=== PATIENT | female | born 1945 | race Caucasian/White ===

== ENCOUNTER → 2020-05-23 08:37 | Outpatient (REF) | payer MEDICARE, OTHER, SELFPAY | LOC: ANHLAB 08:37 | PROVIDERS: PCP Internal Medicine; Visit Provider Nurse Practitioner | DX: L57.0 Actinic keratosis (principal); R23.4 Changes in skin texture | CPT/HCPCS: 88305 ==

== ENCOUNTER → 2020-07-24 07:52 | Outpatient (REF) | payer MEDICARE, OTHER, SELFPAY | LOC: ANHLAB 07:52 | PROVIDERS: PCP Internal Medicine; Visit Provider Nurse Practitioner | DX: C44.619 Basal cell carcinoma of skin of left upper limb, including shoulder (principal) | CPT/HCPCS: 88305; 88331 ==

== ENCOUNTER → 2021-01-08 02:16 | Outpatient (CLI) | payer MEDICARE, SELFPAY ==
[2021-01-08 17:04] LABS: SARS-CoV-2 RNA PCR Negative
== END ==
PROVIDERS: PCP Internal Medicine; Visit Provider Orthopaedic Surgery
DX: Z01.812 Encounter for preprocedural laboratory examination (principal); Z20.822 Contact with and (suspected) exposure to COVID-19
CPT/HCPCS: C9803; U0003; U0005

== ENCOUNTER 2021-01-11 01:42 | Day surgery (SDC) | payer MEDICARE, SELFPAY ==
[2021-01-03 09:07] VITALS: BMI 25.6
[2021-01-11] VITALS (10 sets, daily range): BP systolic 125–173; BP diastolic 56–74; PULSE 57–70; RESP 10–20; TEMP 36–36.2; O2SAT 92–100
--- NOTE | ~2021-01-11 | XR_ITS ---
EXAMINATION: XR surgery orthopedic DATE: 01/11/2021 10:57 INDICATION: ORIF left wrist fracture TECHNIQUE: 3 fluoroscopic images of the left wrist were obtained during procedure performed by Dr. Diego butcher. Radiologist was not present for the imaging or procedure. The amount of fluoroscopy time used during this procedure was 0.4 minutes. COMPARISON: None. FINDINGS: Volar T plate and screw fixation of a distal left radial fracture which is now near-anatomic alignmen t. Additional unfixed comminuted fracture of the distal left radius including a minimally displaced o blique fracture plane at the distal metaphyseal region as well as a small minimally distracted ulnar styloid avulsion fracture. Expected small amount of postoperative gas in the surrounding soft tissues and in the wrist joint space. IMPRESSION: 1. Near-anatomic alignment of distal left radial and ulnar fractures post volar T plate and screw fix ation of the radial fracture. See procedure report for further detail. Reviewed, dictated and finalized at location A. IMPRESSION: 1. Near-anatomic alignment of distal left radial and ulnar fractures post volar T plate and screw fixation of the radial fracture. See procedure report for fu rther detail.
[2021-01-11] MEDS: ACETAMINOPHEN 500 MG TABLET 1000 MG PO (08:12)
[2021-01-11] MEDS: LACTATED RINGERS 1,000 ML 30 ML IV CONT ×2 (08:15→12:18)
[2021-01-11] MEDS: KETOROLAC 15 MG/ML VIAL (*BKC) IV PUSH (08:24)
--- NOTE | 2021-01-11 08:40 | WPDANESEPPF ---
Anes - Initial Pre Proc Eval Procedure: Operation Date: 01/11/21 09:30 Proposed Procedures p Open Reduction Internal Fixation Left Wrist - Luis Manuel Thakur MD Date/Time: 01/11/21 08:40 Surgeon: Luis Manuel Thakur MD Pre Op Diagnosis: left wrist fx Patient Data Age: 75 Gender: F Height: 5 ft 2 in Weight: 63.63 kg Allergies Allergy/AdvReac Type Severity Reaction Status Date / Time No Known Allergies Allergy Verified 01/11/21 08:07 Home Medications Medication Instructions Recorded Confirmed Type folic acid 1 mg tablet 1 mg PO DAILY 05/23/20 01/11/21 History metoprolol tartrate 25 mg tablet 25 mg PO BID tablet 05/23/20 01/11/21 History olmesartan 20 mg tablet 20 mg PO DAILY tablet 05/23/20 01/11/21 History simvastatin 40 mg tablet 40 mg PO HS tablet 05/23/20 01/11/21 History acetaminophen [Tylenol Extra 1,000 mg PO Q6H PRN 01/03/21 01/11/21 History Strength] alprazolam 0.25 mg PO HS PRN 01/11/21 01/11/21 History aspirin [Adult Low Dose Aspirin] 81 mg PO DAILY 01/11/21 01/11/21 History Patient hx anesthesia problems: none Family hx anesthesia problems: none PMFSH Past Medical History Medical History CAD (coronary artery disease) High blood pressure High cholesterol Surgical History Surgical History H/O cardiac catheterization stent implant - 2004 History of stapedectomy left ear - many yrs ago Stented coronary artery Family History Family History Other Family history of cardiovascular disease Social History Social History Smoking status: Never smoker Second hand tobacco smoke exposure: No Alcohol intake: never Substance use: never Substance use type: does not use Living arrangements: with family Spiritual care concerns: No Anes - Eval Final PreProcedure Day of Procedure 01/11/21 08:40 Patient weight: normal Heart: regular rate and rhythm Lungs: clear to auscultation Airway: Mallampati scale class II Neurological: alert and oriented ASA classification: III Emergent: no Anesthetic plan: proceed Anesthesia type and monitoring: general LMA and standard monitoring Informed Consent: The patient's anesthetic plan and its attendant risks and benefits were discussed with the patient/family/POA. Questions were solicited and answers provided to the satisfaction of the patient/family/POA.
--- NOTE | 2021-01-11 09:53 | WPDHPUPDATE1 ---
History and Physical Update Update Date/Time: 01/11/21 09:53 History and Physical has been reviewed, including an updated exam of the patient. There are NO changes in the patient's condition. Risks, benefits, and alternatives have been discussed and questions answered. Patient agrees to proceed with procedure.
[2021-01-11] MEDS: ceFAZolin 2 GM/D5W 50 ML 2 GM/50 ML BAG IVPB (10:00)
--- NOTE | 2021-01-11 10:55 | PM.PROC ---
Procedure Note - Detailed Date of procedure: 01/11/21 Pre-op diagnosis: left wrist fx Surgeon: Preoperative diagnoses left distal radius fracture greater than 4 part unstable with associated ulna fracture Postop diagnoses the same Procedure: Left distal radius fracture open reduction internal fixation of an unstable greater than 4 part distal radius fracture with a volar locking plate Anesthesia: General Estimated blood loss: Minimal Patient: Margarita Robertson Antibiotics: 2 g of Ancef were administered within 1 hour of the procedure The patient was advised of the risks benefits alternatives and complications of this procedure which include but not limited to infection nerve and blood vessel injury as well as tendon injury and the possibility of hardware irritation requiring plate removal, the patient agrees to proceed. The benefits of the surgery include but are not limited to early mobilization as well as decrease in posttraumatic arthritis due to maintenance of reduction. The patient is very active in opted to perform undergo this procedure. Description procedure The patient is brought to the operating placed in supine position. The patient underwent general anesthesia. Left upper extremity was then prepped and draped in a standard sterile fashion. Esmarch exsanguination was used and tourniquet was elevated to 280 mmHg. A volar incision was made dissection carried down to the interval between the FCR and radial artery was exposed. During the entire procedure the radial artery was visualized and care was taken to avoid damage to the radial artery. The fracture site was exposed and was determined to be a complex distal radius fracture greater than 4 part unstable. After open reduction was performed provisional fixation was performed with a retrograde K-wire from the radial styloid into the radial shaft. I obtained and maintained radial height and radial inclination and volar tilt. I then placed a volar plate with multiple locking screws that were all pegs distally as well as 2 shaft screws. Care was taken to avoid violation of the dorsal cortex of the distal radius and making sure all of the pegs were within the distal radius and not violating the cortical surface of the dorsal cortex distally. Fluoroscopy was used to verify maintenance of reduction and placement of screws as well as the plate. It was then irrigated copiously injected with local anesthesia into the subcutaneous tissue. The skin was then closed using Monocryl suture and Steri-Strips were placed. The patient was advanced in sterile fashion and she was transferred to the recovery room in stable condition. The plan is for early mobilization. When I see her back in clinic we will place her into a removable volar splint and she can be activity as tolerated. Luis Manuel Thakur MD
[2021-01-11] MEDS: fentaNYL CITRATE INJ (*CRX) 100 MCG/2 ML VIAL 25 MCG IV PUSH ×8 (11:42→12:30)
--- NOTE | 2021-01-11 12:03 | SUR.PHASEI ---
PT AWAKE AND ALERT. REMAINS TEARFUL, FENTANYL GIVEN PRN.
--- NOTE | 2021-01-11 12:23 | SUR.PHASEI ---
1215; PT RESTING QUIETLY. DOZING IN INTERVALS MUCH MORE RELAXED. NO LONGER TEARFUL. AWAKENS EASILY. PT IS HAVING DIFFICULTY USING PAIN SCALE. SAYS IT HURTS BUT A LITTLE LESS NOW, MAYBE A 6 OR 7
--- NOTE | 2021-01-11 12:38 | SUR.PHASEI ---
PT AWAKE, CALM NOW. STATES PAIN IMPROVED. READY TO SEE SPOUSE.
== END 2021-01-11 14:15 | disposition home or self-care (01) ==
PROVIDERS: PCP Internal Medicine; Visit Provider Orthopaedic Surgery
PROC: (CPT 25575; principal; 2021-01-11 09:30)
DX: S52.572A Other intraarticular fracture of lower end of left radius, initial encounter for closed fracture (principal); S52.612A Displaced fracture of left ulna styloid process, initial encounter for closed fracture; W01.0XXA Fall on same level from slipping, tripping and stumbling without subsequent striking against object, initial encounter; I25.10 Atherosclerotic heart disease of native coronary artery without angina pectoris; I10 Essential (primary) hypertension; E78.00 Pure hypercholesterolemia, unspecified; Z79.82 Long term (current) use of aspirin; Z95.5 Presence of coronary angioplasty implant and graft
CPT/HCPCS: 25609; A4565; A9270; C1713; J0690; J1100; J1170; J1885; J2250; J2405; J2704; J2795; J3010; J7120